=== PATIENT | male | born 1985 ===

== ENCOUNTER 2020-11-07 07:50 | Emergency (ER) | payer MEDICAID ==
[~2020-11-07] VITALS: Ht 172.7 cm; Wt 70.3 kg
[2020-11-07] MEDS ORDERED: VANCOMYCIN IV 1,000 MG in IV DEXTROSE 5% 250 ML IV ONE (08:30)
--- NOTE | 2020-11-07 08:35 | NUR ---
PT's RIGHT F/A WOUND WAS CLEANED WITH 0.9% NS AND DRESSED WITH GAUZE ACCORDING TO DR VICENTE ORDERS.
--- NOTE | 2020-11-07 08:52 | NUR ---
Patient did not wish to proceed with medical care recommended by Dr. Perez. Patient was given information related to possible complications, up to and including , which could occur as a result of leaving the hospital at this time. Patient verbalized understanding of risks involved due to leaving against medical advice. Patient signed AMA form, but refused to sign the Homeless waiver form ([id number]), witnessed by HEYDI Johnson.
== END 2020-11-07 08:55 | disposition home or self-care (01) ==
LOC: ER 07:54
DX: T84.619A Infection and inflammatory reaction due to internal fixation device of unspecified bone of arm, initial encounter (principal); L03.113 Cellulitis of right upper limb
CPT/HCPCS: A4663

== ENCOUNTER → 2022-02-26 | Emergency (ER) | payer SELFPAY | END | disposition left against medical advice (07) | LOC: ER 12:53 | DX: Z53.21 Procedure and treatment not carried out due to patient leaving prior to being seen by health care provider (principal) ==